=== PATIENT | female | born 1970 | race Caucasian/White ===

== ENCOUNTER → 2024-06-30 | Day surgery (SDC) | payer OTHER ==
[2024-06-29 14:12] VITALS: BP 116/79
[~2024-06-30] VITALS: Ht 160 cm; Wt 91.2 kg
[~2024-06-30] MED LIST: CEFAZOLIN SODIUM 1,000 MG VIAL ONE; DICLOFENAC POTA50 MG PO; TRAMADOL HCL100 M1 PO
== END | disposition home or self-care (01) ==
LOC: CIR.AMB 06:01
PROVIDERS: ATTEND Orthopaedic Surgery Hand Surgery
DX: S52.532A Colles' fracture of left radius, initial encounter for closed fracture (principal); M24.532 Contracture, left wrist; Z88.5 Allergy status to narcotic agent
CPT/HCPCS: 25609; 25118; 25280; L8699